=== PATIENT | male | born 1975 | race Caucasian/White ===

== ENCOUNTER 2023-04-12 13:05 | Outpatient (CLI) | payer OTHER ==
[2023-04-12] MEDS ORDERED: Magnevist 469MG/ML 20 ML VIAL ONE (13:51)
== END 2023-04-12 13:06 | disposition home or self-care (01) ==
LOC: CSHMRI 13:05
PROVIDERS: ATTEND Neurological Surgery
DX: M48.062 Spinal stenosis, lumbar region with neurogenic claudication (principal); Z98.890 Other specified postprocedural states; M47.816 Spondylosis without myelopathy or radiculopathy, lumbar region; M48.8X7 Other specified spondylopathies, lumbosacral region
CPT/HCPCS: 72158

== ENCOUNTER 2023-05-04 07:08 | Outpatient (CLI) | payer OTHER | END 2023-05-04 07:09 | disposition home or self-care (01) | LOC: CSHCT 07:08 | PROVIDERS: ATTEND Neurological Surgery | DX: I99.8 Other disorder of circulatory system (principal) | CPT/HCPCS: 75635 ==

== ENCOUNTER 2023-05-18 12:27 | Outpatient (CLI) | payer OTHER | END 2023-05-18 12:28 | disposition home or self-care (01) | LOC: CSHULT 12:27 | PROVIDERS: ATTEND Neurological Surgery | DX: I82.403 Acute embolism and thrombosis of unspecified deep veins of lower extremity, bilateral (principal) | CPT/HCPCS: 93970 ==